=== PATIENT | female | born 1940 | race Caucasian/White ===

== ENCOUNTER → 2016-09-29 | Outpatient (CLI) | payer MEDICARE, BC ==
[~2016-09-29] MED LIST: ASPIRIN 81MG TA81 MG PO; AVPAK PRIMIDONE50 MG PO; CRESTOR10 MG PO; DICLOFENAC 50MG50 MG PO; EXFORGE 10 MG-31 TAB PO; HYDROCHLOROTHIA25 M1 PO; LEADER FIBER1 POW; LEVAQUIN250 MG PO; LOVAZA1 GM PO; PLAVIX 75MG TAB75 MG PO; VITAMIN C500 MG PO; VITAMIN D1000 IU PO
--- NOTE | 2016-09-29 13:43 | RADIOLOGY REPORT PS360 ---
HIP LT 2-3V W/PELVIS IF PERFOR HISTORY: LT HIP PAIN ORDERING PHYSICIAN: Ashok Lance MD PATIENT AGE: 76 years COMPARISON: None FINDINGS: Mild osteoarthritic changes are present involving the left hip. There is a faint lucency noted at the bases cervical region of the femoral neck probably related to a mock line from the posterior aspect of the acetabulum as opposed to a fracture. Please correlate clinically. No destructive process evident. Mild osteophyte formation along the femoral head. IMPRESSION: Mild osteoarthritic change of the left hip with probable mock line of the femoral neck
== END ==
LOC: RAD 12:17
DX: M25.552 Pain in left hip (principal)

== ENCOUNTER → 2017-04-19 | Outpatient (CLI) | payer MEDICARE, BC ==
[2017-04-19 14:52] LABS: BUN 15 mg/dL (7-18)
[2017-04-19 14:53] LABS: GFR (ESTIMATED) 81 ML/MIN (59-)
--- NOTE | 2017-04-20 15:04 | RADIOLOGY REPORT PS360 ---
CT Thoracic Spine W/WO Contras HISTORY: THORACIC PAINmost pronounced region T 11 level Patient Age: 77 years: Female Ordering Physician: Mike Veronica MD TECHNIQUE: Spiral CT scanning performed through the thoracic spine both pre and postcontrast as requested.. 100 cc Isovue 370 utilized thin sagittal and coronal along with axial reconstructions on CT workstation COMPARISON :CT 03/30/[address] abdomen February 2016 FINDINGS Primary finding on this case is the prominent densely calcified nodule/mass seen at the lower thoracic spinal canal. This is just posterior to the T11 level. Dense calcified. We appreciate no contrast enhancement by CT at or adjacent to this area. But this this in part due to its dense calcified character.. It measures up to 13 mm height x 11 mm transverse x 10 mm AP. This round calcified nodule Occupies & fills the LEFT aspect of the thecal sac and on cross-section occupies over 60% of the volume of the spinal canal. %. With this it compresses & displaces the lower thoracic cord to the right.. There is also some wispy lower density calcification just along the anterior left margin of of the dura overlying dense calcified area.. The latter appears to form a ssubtle tail superior and inferior to the mass on sagittal reconstruction views This did not enhance appreciably either ( although delayed images may have been helpful in this regard to enhance minute meningioma as an enhanced early or late). But nonetheless I tend to favor Favor a densely calcified meningioma particularly with what appears likely anterior dural base nodule......... On also note it is fairly stable since the CT abdomen February which addition supports its indolent nature Major Differential considerations might include densely calcified large extruded disc fragment which I believe less likely as this favor this is more likely dural based/ intradural extra medullary tumor. (which favors meningioma) Unlikely dense calcified Schwannoma to this degree briefly entertain but very as these are very rare. Calcified metastatic lesion unlikely given the stability Neurosurgical consult recommended. L1/2. Mild slightly calcified disc bulge most evident to the right. L2/3. Slight Calcified margin of bulging disc most evident to the right foramen The vertebral bodies superior to this appears satisfactory no additional lesions. Marginal osteophytes and mild degenerative disc changes throughout the T-spine. The previous anterior fusion at lower cervical spine involving at least C4-C5-C6.. There may be some scant anterior positioning & listhesis of C7 on T1, Just over 1.5 mm with scant mild posterior- hypertrophic ridging at C7/T1 There is also a small posterior central spurring posteriorly at midline T3/T4 level. Suggestion tiny area spurring or tiny calcified disc protrusion the right at T8/9 . IMPRESSION 1. Stable appearing density calcified nodule/mass at the left aspect of the spinal canal posterior to the T11 level.. Occupies over 60% of the spinal canal compressing and displaces the lower thoracic cord to the right. Favor densely calcified meningioma.. On close inspection suspect suggestion of likely dural based margin along its anterior left aspect, along some subtle wispy calcification of the dural margin overlying this area. Above and below the major mass. Other differential considerations discussed in text unlikely. No appreciable enhancement here with CT but this mainly reflect its diffusely dense calcified character. Neurosurgical consult recommended 2. Anterior marginal osteophyte and degenerative changes T-spine 3. With this only note Suggestion of very tiny calcified spur or possible tiny calcified disc just to the right of midline at T 8/9. Barely appreciable 4. Previous anterior discectomy and fusion C4-5-6 noted
== END ==
LOC: RAD 13:32
PROVIDERS: Family Medicine
DX: M54.6 Pain in thoracic spine (principal); R52 Pain, unspecified
CPT/HCPCS: Q9967

== ENCOUNTER 2017-05-11 10:40 | Emergency (ER) | payer MEDICARE, BC ==
[~2017-05-11] VITALS: Ht 162.6 cm; Wt 71.2 kg
--- NOTE | 2017-05-11 11:10 | Emergency Room Report ---
History of Present Illness Time Seen by 1101 Presenting Problem in Triage Pt arrived:Walked Presenting Problem:PT REPORTS PAIN IN L FOOT X2 DAYS. PT DENIES ANY KNOWN INJURY , STATES PAIN IS WORSE WITH AMBULATION. REPORTS PAIN FEELS "DEEP" IN FOOT. 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 N Clinical Suspician of Infection? N Mental Status: 1 - Regular (Normal Baseline) Sepsis Risk:Low Sepsis Risk Have you (or family members/close friends) recently traveled outside the [place]? N If Yes, where/when: Have you had exposure to infectious disease within the past month? N TB? Other? Specify: 77 yrs old wf with recent physical therapy for back pain and LEFT knee pain with improvement. 2 days ago she developed LEFT medial arch foot pain. It is worse with standing on it relieved by rest. She has not used her anti-inflammatories for the last 2 days. She denies having skin color changes ankle pain, heel pain, or calf pain. She has no numbness or tingling of the foot she has no abnormal sensation, she has no color changes. Source patient, RN notes reviewed, family (her ) Exam Limitations no limitations ALLERGIES Coded Allergies: No Known Allergies (01/04/16) Home Medications Reported Medications Primidone (Avpak Primidone) 150 MG PO QHS #90 TAB Primidone (Avpak Primidone) 50 MG PO DAILY AMLODIPINE/VALSARTAN (Exforge 10-320 MG Tablet) 1 TAB PO DAILY CHOLECALCIFEROL (VITAMIN D3) (Vitamin D3) 2,000 IUNITS PO DAILY Ascorbic Acid (Vitamin C) 500 MG PO DAILY DEXTRIN (Fiber) 1 POW NA DAILY Rosuvastatin Calcium (Crestor) 10 MG PO QHS HYDROCHLOROTHIAZIDE (Hydrochlorothiazide) 25 MG PO DAILY #30 History Medical History General CAD? No Angina: No OK: No Hypertension? Yes Hyperlipidemia? Yes CHF? No DVT? No PE? No COPD? Yes Asthma? No Anemia? No GERD? No Gastric ulcers? No GI Bleed? Yes Hernia? No Thyroid Problems? No Hypothyroidism? No CVA? No Seizures? No Diabetes? No Renal Insuffiency? No End Stage Renal Disease? No UTI? Yes Stones? No GB Disease: Yes Nephritic Syndrome? No Asplenia? No Hepatitis? No Sickle Cell Disease? No Arthritis? Yes Migraines? No Cataracts? Yes Glaucoma? No MRSA? No HIV? No TB? No Anxiety? Yes Depression? Yes Cancer? Yes Site: MELANOMA ON ARM More? 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 Respiratory no symptoms reported Cardiovascular no symptoms reported Gastrointestinal no symptoms reported Genitourinary no symptoms reported. Skin no symptoms reported Psychiatric/Neurological no symptoms reported Physical Exam Vital Signs Vital Signs Date Time Temp Pulse Resp B/P Pulse O2 O2 Flow FiO2 Ox Delivery Rate 05/11 1054 98.0 70 18 110/71 95 05/11 1044 98.0 70 18 /71 95 - WBC >12,000 or <4,000 or 10% bands? 2 or more SIRS Criteria Met? B/P:110/71 MAP:84 Creatinine >2.0? UA output<0.5ml/kg/hr for 2 hrs? Platelet count >100,000? Lactate >2.0mmol/1? INR >1.2 or PTT > than 60 sec? Evidence of Organ Dysfunction? Provider documented clinical suspician of infection? N Sepsis Criteria Count: 0 Sepsis Risk: Low Sepsis Risk General Appearance normal appearance, WD/WN Eye Exam - bilateral eye normal exam, bilateral eye PERRL, bilateral eye EOMI Ear, Nose, Throat hearing grossly normal, normal ENT inspection Neck normal inspection, non-tender, supple, full range of motion Respiratory Status Yes: trachea midline, chest symmetrical, non tender chest. No: respiratory distress. Lung Sounds bilateral: normal breath sounds, lungs clear. Cardiovascular normal exam, regular rate/rhythm, no peripheral edema, no gallop, no JVD, no murmur, no rub, normal peripheral pulses Peripheral Pulses Pulses normal Yes Gastrointestinal normal bowel sounds, normal exam, non tender, soft, no organomegaly Back normal inspection, no CVA tenderness, no vertebral tenderness Extremities the patient has medial arch muscle tenderness worse by palpation and foot eversion. there is no bony tenderness no heel tenderness tenderness. There is no skin color changes. Dorsalis pedis was strong, cap Refill is one second in the LEFT foot. 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 ED Critical Care Critical Care No at 1104
[2017-05-11 11:50] VITALS: BP 142/76
[2017-05-11] MEDS ORDERED: OMEGA-31000 M1 (12:00)
[2017-05-11] MEDS ORDERED: ADVIL100 MG (12:01)
--- NOTE | 2017-05-11 13:19 | RADIOLOGY REPORT PS360 ---
FOOT-LT-3 VIEWS HISTORY: PAIN WITH NO TRAUMA ORDERING PHYSICIAN: Vito Mcfarland MD PATIENT AGE: 77 years COMPARISON: None FINDINGS: Weightbearing views are performed Mild hallux valgus with first metatarsophalangeal angle of 28 degrees and hypertrophic changes noted at the distal first metatarsal with some soft tissue swelling also at that area consistent with bunion formation. There is some ossification of the Achilles tendon and along the plantar fascia at the calcaneal spur region. IMPRESSION: 1. Hallux valgus with bunion formation. 2. Nonspecific calcification of the plantar fascia and Achilles tendon
--- NOTE | 2017-05-11 13:20 | RADIOLOGY REPORT PS360 ---
FOOT-RT-3 VIEWS HISTORY: PAIN WITH NO TRAUMA ORDERING PHYSICIAN: Vito Mcfarland MD PATIENT AGE: 77 years COMPARISON: None FINDINGS: Weightbearing views are performed. There is severe hallux valgus with first metatarsophalangeal angle of 42 degrees with bunion formation at the distal first metatarsal. Mild flexion deformity of the second digit. No evidence of pes planus. No fracture or dislocation. IMPRESSION: Severe hallux valgus with bunion formation. Mild flexion deformity of the second digit
--- OUTSIDE RECORDS SUMMARY | 2017-05-12 10:45 | External Medical Summary Rpt | CCD ---
Author Author , TONY Organization TONY Address Unknown Phone [email or web address] Name Relationship Address Phone AKIKO, Next Of Kin [address], [phone] [place] [address] Purpose Continuity of Care Document - 08-21-2013 through 2016 Allergies, Adverse Reactions, Alerts Type Allergy to substance Adverse Reaction to Substance Substance Reaction Severity NO KNOWN ALLERGIES Unknown Unknown Medications Na ND Rx Da Fi Fi Am Da Di Ph RX Ph St me C No te ll ll ou ys ag ar # ys at rm s nt no ma ic us Or Da si cy ia de te s n re d SO 00 02 0 No DI 40 -0 UM 97 5- Lo 98 20 ng CH 30 14 er LO 3 RI Ac DE ti ve 0. 9% SO KATRINA TI ON Sa 63 02 0 No li 80 -0 ne 70 5- Lo 10 20 ng Fl 07 14 er us 5 h Ac 10 ti ML ve Sy ri ng e Po 00 02 0 No ta 24 -0 ss 50 5- Lo iu 05 20 ng m 80 14 er Ch 1 lo Ac ri ti de ve 20 ME Q Ta bl e MA 00 02 0 No PA 90 -0 P 41 5- Lo 32 98 20 ng 5 26 14 er MG 1 Ac TA ti BL ve ET LE 25 02 0 No VO 02 -0 FL 10 5- Lo OX 13 20 ng AC 28 14 er IN 3 Ac 75 ti 0 ve MG /1 50 ML -D 5W Vital Signs 08-21-2013 17:09 Name Value Interpretat Reference Comment ion Range Body 99.8 [degF] Temperature BP 69 mm[Hg] Diastolic BP Systolic 127 mm[Hg] Heart 75 /min Rate/Pulse O2% 94 % Respiratory 20 /min Rate 08-21-2013 15:46 Name Value Interpretat Reference Comment ion Range Body 99.8 [degF] Temperature 08-21-2013 14:57 Name Value Interpretat Reference Comment ion Range BP 68 mm[Hg] Diastolic BP Systolic 140 mm[Hg] Heart 79 /min Rate/Pulse O2% 94 % Respiratory 18 /min Rate Results Labs Lab Lab Date Result Refere Interp Status Commen Order Detail nces retati t Range on COMPREHENSIVE METABOLIC PANEL (08-21-2013 14:50) Glucose 139 74-106 complet 014 mg/dL ed Bld-mCn 14:50 c BUN 22 7-18 complet Bld-mCn 014 mg/dL ed c 14:50 Creat 1.2 0.6-1.0 complet SerPl-m 014 mg/dL ed Cnc 14:50 Creat 47 50-200 complet Cl 014 ML/MIN ed predict 14:50 ed SerPl C-G-vRa te GFR/BSA 44 59- complet .pred 014 ML/MIN ed SerPl 14:50 Schwart z-vRate Sodium 133 136-145 complet SerPl-s 014 mmoL/L ed Cnc 14:50 Potassi 3.0 3.5-5.1 complet um 014 mmoL/L ed SerPl-s 14:50 Cnc Chlorid 93 98-107 complet e 014 mmoL/L ed SerPl-s 14:50 Cnc CO2 29 21.0-32 complet SerPl-s 014 mmoL/L .0 ed Cnc 14:50 Calcium 08-21- 8.6 8.5-10. complet 014 mg/dL 1 ed SerPl-m 14:50 Cnc Prot 7.8 6.4-8.2 complet SerPl-m 014 gm/dL ed Cnc 14:50 Albumin 05-2 2.8 3.4-5.0 complet 014 gm/dL ed SerPl-m 14:50 Cnc Globuli 5.0 1.3-3.2 complet n 014 gm/dL ed Ser-mCn 14:50 c Albumin 0.6 UNK 1.1-1.8 complet /Glob 014 ed SerPl-m 14:50 Rto Bilirub 0.3 0.2-1.0 complet 014 mg/dL ed SerPl-m 14:50 Cnc AST 02-05-2 178 U/L 15-37 complet SerPl-c 014 ed Cnc 14:50 ALT 02-05-2 267 U/L 12-78 complet SerPl-c 014 ed Cnc 14:50 ALP 02-05-2 286 U/L 50-136 complet SerPl-c 014 ed Cnc 14:50 THYROID STIM HORMONE (08-21-2013 14:50) THYROID 02-05-2 0.64 0.358-3 complet STIM 014 uIU/ml .740 ed HORMONE 14:50 CBC with AUTO DIFF (08-21-2013 14:15) WBC # 02-05-2 14.0 4.8-10. complet Bld 014 K/MM3 8 ed Auto 14:15 RBC # 02-05-2 4.19 4.2-5.4 complet Bld 014 M/mm3 ed Auto 14:15 Hgb 02-05-2 13.3 12.2-16 complet Bld-mCn 014 g/dL .2 ed c 14:15 Hct Fr 08-21-2 39.0 % 37.0-47 complet Bld 014 .0 ed 14:15 MCV RBC 0205-2 93.1 fl 82.2-97 complet 014 .8 ed 14:15 MCH RBC 05-2 31.7 pg 27-31.2 complet Qn 014 ed Auto 14:15 MEAN 05-2 34.0 31.8-35 complet CORPUSC 014 g/dl .4 ed ULAR 14:15 HGB CONC RDW RBC 02-05-2 15.5 % 11.5-17 complet Auto 014 .5 ed 14:15 Platele 05-2 223 142-424 complet t Bld 014 K/mm3 ed Ql 14:15 Manual MEAN 05-2 8.3 fl 7.4-10. complet PLATELE 014 4 ed T 14:15 VOLUME Granulo -05-2 88.3 % 37.0-80 complet cytes 014 .0 ed Fr Bld 14:15 Auto LYMPH % 02-05-2 5.9 % 10-50.0 complet 014 ed 14:15 Monocyt 02-05-2 5.1 % 1.7-9.3 complet es Fr 014 ed Bld 14:15 Auto Eosinop 02-05-2 0.5 % 0.1-12. complet hil Fr 014 0 ed Bld 14:15 Auto Basophi 0.2 % 0.1-2.0 complet ls Fr 014 ed Bld 14:15 Auto Granulo 12.4 1.8-7.8 complet cytes # 014 K/mm3 ed Bld 14:15 Auto Lymphoc 0.8 0.7-4.5 complet ytes Fr 014 K/mm3 ed Bld 14:15 Auto Monocyt 0.7 0.1-1.0 complet es # 014 K/mm3 ed Bld 14:15 Auto Eosinop 0.1 0.0-0.4 complet hil # 014 K/mm3 ed Bld 14:15 Auto Basophi 2 0.0 0-0.2 complet ls # 014 K/MM3 ed Bld 14:15 Auto Encounters Encounter Start End Date Code Location Performer Type Date Emergency CHALO FONSECA DO (ER) 4 14:22 4 17:20 [facility]
--- OUTSIDE RECORDS SUMMARY | 2017-05-12 10:45 | External Medical Summary Rpt | CCD ---
Author Author , TONY Organization TON[employer] Address Unknown Phone Support Name Relationship Address Phone AKIKO, Next Of Kin [address], [phone] [place] [address] Purpose Continuity of Care Document - 08-21-2013 [...] FONSECA DO (ER) 4 14:22 4 17:20 [facility]
--- OUTSIDE RECORDS SUMMARY | 2017-05-12 10:45 | External Medical Summary Rpt ---
Author Author [facility] Organization [facility] Address Unknown Phone Unavailable Care Team Providers Care Extractor Filler Name Role Phone George FLORES PCP [phone] Encounter [facility] [id number] Date(s): 04/21/16 - 04/22/16 [facility] [address] [place] [address]- Discharge Disposition: OP Self Care or Home Attending Physician: GERTRUDE MAGANA MD-CAR Admitting Physician: GERTRUDE MAGANA MD-CAR Referring Physician: GERTRUDE MAGANA MD-CAR Reason for Visit SICK SINUS SYNDROME Vital Signs Most recent 1 2 3 to oldest [Reference Range]: Temperature Oral (04/22/16 Oral Oral Source 12:00 PM) (04/22/16 7:45 AM) (04/22/16 4:06 AM) Temperature Fahrenheit Fahrenheit Fahrenheit Mode (04/22/16 12:00 (04/22/16 7:45 AM) (04/22/16 4:06 AM) PM) Temperature, 97.5 Deg F 97.6 Deg F 98.4 Deg F Fahrenheit (04/22/16 12:00 (04/22/16 7:45 AM) (04/22/16 4:06 AM) [96.8-99.7 PM) Deg F] Clinical 36.4 Deg C 36.4 Deg C 36.9 Deg C Temperature, (04/22/16 12:00 (04/22/16 7:45 AM) (04/22/16 4:06 AM) C PM) Peripheral 40 bpm Pulse Rate *LOW*(04/21/16 [60-100 bpm] 10:29 AM) Heart Rate 72 bpm (04/22/16 70 bpm 70 bpm Monitored 12:00 PM) (04/22/16 7:45 AM) (04/22/16 4:06 AM) [60-100 bpm] Respiratory 18 Breaths/Min Rate [14-20 (04/22/16 7:45 AM) Breaths/Min] Blood 152/101 mmHg 150/96 mmHg 141/88 mmHg Pressure *HI*(04/22/16 *HI* *HI* [90-140/60-9 12:00 PM) (04/22/16 7:45 AM) (04/22/16 4:06 AM) 0 mmHg] Mean 116 (04/22/16 111 106 Arterial 12:00 PM) (04/22/16 7:45 AM) (04/22/16 4:06 AM) Pressure (MAP)-BMDI Blood 182/102 mmHg 188/90 mmHg Pressure *HI* *HI* Invasive (04/21/16 3:59 PM) (04/21/16 3:00 PM) [90-140/60-9 0 mmHg] Oxygen 96 % (04/22/16 94 % 91 % Saturation 12:00 PM) (04/22/16 7:45 AM) *LOW* [94-100 %] (04/22/16 4:06 AM) Oxygen Room air Room air Therapy Mode (04/21/16 8:00 PM) (04/21/16 3:59 PM) Problem List Condition Effective Status Health Informant Dates Status Allergic Active rhinitis(Con firmed) Arthritis(Co Active nfirmed) Back Active pain(Confirm ed) Bronchitis(C Active onfirmed) Bursitis(Con Active firmed) Cataract(Con Active firmed) COPD Active patient (chronic obstructive pulmonary disease)(Con firmed) Coronary Active artery disease(Conf irmed) Carotid Active patient artery disease(Conf irmed) Syncope(Conf Active patient irmed) GI Active patient bleed(Confir med) High blood Active pressure(Con firmed) Hyperlipidem Active ia(Confirmed ) Osteopenia(C Active patient onfirmed) Sick sinus Active patient syndrome(Con firmed) tremors(Conf Active irmed) Allergies, Adverse Reactions, Alerts No Known Allergies Medications acetaminophen-HYDROcodone (acetaminophen-HYDROcodone 325 mg-5 mg oral tablet)1 Tab, Oral, Every 4 Hours, As Needed, Pain (Mild 1-3), Refills: 0Ordering provider: Paulette Huffman APRN amLODIPine-valsartan (Exforge 10 mg-160 mg oral tablet)1 Tab, Oral, Every Day, Refills: 5Ordering provider: Paulette Huffman APRN ascorbic acid (Vitamin C) 500 mg, Oral, Every Day, Refills: 0 omega-3 polyunsaturated fatty acids (Lovaza) 2 Cap, Oral, Every Day, Refills: 0 primidone 50 mg, Oral, Every Day, Refills: 0 Results GENERAL CHEMISTRY Most recent 1 to oldest [Reference Range]: Sodium Level 141 mmol/L [136-146 (04/21/16 10:09 AM) mmol/L] Potassium 3.7 mmol/L Level (04/21/16 10:09 AM) [3.5-5.1 mmol/L] Chloride 105 mmol/L Level (04/21/16 10:09 AM) [102-112 mmol/L] Carbon 30 mmol/L Dioxide (04/21/16 10:09 AM) Level [21-32 mmol/L] Anion Gap 10 [9-20] (04/21/16 10:09 AM) Glucose 101 mg/dL Level (04/21/16 10:09 AM) [74-106 mg/dL] Blood Urea 16 mg/dL Nitrogen (04/21/16 10:09 AM) [7-22 mg/dL] Creatinine 0.80 mg/dL Level (04/21/16 10:09 AM) [0.55-1.02 mg/dL] eGFR 85 mL/min/1.73m2 [>=60 (04/21/16 10:09 AM) mL/min/1.73m 2] eGFR 70 mL/min/1.73m2 NonAfrican (04/21/16 10:09 AM) [>=60 mL/min/1.73m 2] Bun/Creatini 20.0 ne (04/21/16 10:09 AM) [8.0-20.0] Calcium 8.5 mg/dL Level (04/21/16 10:09 AM) [8.5-10.1 mg/dL] Protein 7.2 Gram/dL Total (04/21/16 10:09 AM) [6.4-8.2 Gram/dL] Albumin 4.0 Gram/dL Level (04/21/16 10:09 AM) [3.4-5.0 Gram/dL] Globulin 3.2 Gram/dL [1.5-4.5 (04/21/16 10:09 AM) Gram/dL] A/G Ratio 1.2 [1.1-2.5] (04/21/16 10:09 AM) Bilirubin 0.3 mg/dL Total (04/21/16 10:09 AM) [0.2-1.0 mg/dL] Alk Phos 115 Units/Liter [27-136 (04/21/16 10:09 AM) Units/Liter] AST [5-37 18 Units/Liter Units/Liter] (04/21/16 10:09 AM) ALT [12-78 29 Units/Liter Units/Liter] (04/21/16 10:09 AM) Magnesium 2.0 mg/dL Level (04/21/16 10:09 AM) [1.5-2.4 mg/dL] CARDIAC SPECIFIC MARKERS Most recent 1 to oldest [Reference Range]: ProBNP 171 pg/mL [0-450 (04/21/16 10:09 AM) pg/mL] HEMATOLOGY Most recent 1 to oldest [Reference Range]: WBC 7.8 K/uL [4.0-10.0 (04/21/16 10:09 AM) K/uL] RBC 4.06 Million/uL [3.93-5.22 (04/21/16 10:09 AM) Million/uL] Hgb 12.8 g/dL [11.2-15.7 (04/21/16 10:09 AM) g/dL] Hct 38.1 % [34.1-44.9 (04/21/16 10:09 AM) %] MCV 93.8 fL [79.0-94.8 (04/21/16 10:09 AM) fL] MCH 31.5 pg [25.6-32.2 (04/21/16 10:09 AM) pg] MCHC 33.6 Gram/dL [32.2-36.5 (04/21/16 10:09 AM) Gram/dL] Platelet 202 K/uL Count (04/21/16 10:09 AM) [163-369 K/uL] MPV 9.4 fL [9.4-12.4 (04/21/16 10:09 AM) fL] RDW 13.2 % [11.6-14.4 (04/21/16 10:09 AM) %] Slide Review No (04/21/16 10:09 AM) ENDOCRINOLOGY Most recent 1 to oldest [Reference Range]: TSH 0.535 mcInt Units/mL [0.358-3.740 (04/21/16 10:09 AM) mcInt Units/mL] Immunizations No data available for this section Procedures Procedure Date Related Body Site Diagnosis anterior cervical disc fusion carpal tunnel and right trigger finger release parathyroidectomy right arm melanoma excision right retinal emboli/stroke Social History Social History Response Type Smoking Status Former smoker; Smoking Frequency Within Last 30 Days None; Tobacco Use Within Last Twelve Months No; Years of Tobacco Use 55; Packs/Tins Daily 2; Used Tobacco, but Quit Yes; Second Hand Smoke Exposure No; Smokeless Tobacco Use in Last 30 Days No; Smokeless Tobacco Use History None Assessment and Plan Extracted from: Title: EP Progress Author: Nathanael, Date: 04/22/16 Note- Christin Valadez APRN SubjectiveFollow up: Sick sinus syndrome with documentation of sinus rates frequently down in the40s. In fact today in the procedure lab heart rate was 40 beats per minutedo indicate sinus rhythm.-- post Dual ch PPM [facility] 04/21/16 - nl fx. Chief Complaint: none.PACEMAKER DATA:04/21/16Company is [employer]. The generator implanted is [id number]. The rightatrial lead is [employer] [id number], pacing threshold 1.25 V, 0.5msec, lead impedance 700 ohms. P-wave is 2.4 mV. The RV lead is [facility] [id number], pacing threshold 0.3 V at 0.5 msec, lead impedance is 687ohms, R-wave 12 mV.Final programming is DDDR, lower rate 70, upper rate 120.CONCLUSION:Successful dual-chamber pacemaker implantation. No observed complications. [id number], pacing threshold 0.3 V at 0.5 msec, lead impedance is 687 ohms, R-wave 12 mV. Final programming is DDDR, lower rate 70, upper rate 120. CONCLUSION: Successful dual-chamber pacemaker implantation. No observed complications. Health StatusAllergies:Allergic Reactions (All)No Known AllergiesCanceled/Inactive Reactions (All)No Known Allergies,Allergies (1) ActiveReactionNo Known AllergiesNone DocumentedCurrent medications: (Selected)Inpatient MedicationsOrderedCrestor: 5 mg, Oral, At BedtimeDiovan: 160 mg, Oral, DailyFish Oil: 5,000 mg, Oral, BIDNorvasc: 5 mg, Oral, DailyTylenol: 1,000 mg, Oral, Daily, PRN: PainVitamin C: 500 mg, Oral, DailyVitamin D3: 1,000 Units, Oral, At Bedtimeacetaminophen-HYDROcodone 325 mg-5 mg oral tablet: 1 Tab, Oral, Q4H, PRN: Pain (Mild 1-3)hydrochlorothiazide: 25 mg, Oral, Dailyprimidone: 150 mg, Oral, At Bedtimeprimidone: 50 mg, Oral, DailytraMADol: 100 mg, Oral, QID, PRN: Pain (Severe 7-10)traMADol: 50 mg, Oral, QID, PRN: Pain (Moderate 4-6)Documented MedicationsDocumentedBenefiber: 2tsp, Oral, DailyCrestor: 5 mg, Oral, At BedtimeExforge 5 mg-160 mg oral tablet: 1 Tab, Oral, Daily, 0 Refill(s)Lovaza: 2 Cap, Oral, Daily, 0 Refill(s)Tylenol: 1,000 mg, Oral, Daily, PRN: PainVitamin C: 500 mg, Oral, Daily, 0 Refill(s)Vitamin D3: 1,000 Units, Oral, At Bedtimehydrochlorothiazide: 25 mg, Oral, Daily, 0 Refill(s)primidone: 150 mg, Oral, At Bedtime, 0 Refill(s)primidone: 50 mg, Oral, Daily, 0 Refill(s),Home Medications (10) ActiveBenefiber 2tsp, Oral, DailyCrestor 5 mg, Oral, At BedtimeExforge 5 mg-160 mg oral tablet 1 Tab, Oral, Dailyhydrochlorothiazide 25 mg, Oral, DailyLovaza 2 Cap, Oral, Dailyprimidone 150 mg, Oral, At Bedtimeprimidone 50 mg, Oral, DailyTylenol 1,000 mg, PRN, Oral, DailyVitamin C 500 mg, Oral, DailyVitamin D3 1,000 Units, Oral, At Bedtime,Medications (13) ActiveScheduled: (9)amLODIPine 5 mg tab 5 mg 1 Tab, Oral, Dailyascorbic acid 500 mg tab 500 mg 1 Tab, Oral, Dailycholecalciferol 1,000 int unit tab 1,000 Units 1 Tab, Oral, At Bedtimehydrochlorothiazide 25 mg tab 25 mg 1 Tab, Oral, Dailyomega-3 fish oil 1,000 mg cap 5,000 mg 5 Cap, Oral, BIDprimidone 50 mg tab 50 mg 1 Tab, Oral, Dailyprimidone 50 mg tab 150 mg 3 Tab, Oral, At Bedtimerosuvastatin 10 mg tab 5 mg 0.5 Tab, Oral, At Bedtimevalsartan 160 mg tab 160 mg 1 Tab, Oral, DailyContinuous: (0)PRN: (4)acetaminophen 500 mg tab 1,000 mg 2 Tab, Oral, Dailyacetaminophen/HYDROcodone 325/5 mg tab 1 Tab, Oral, X1SwbkOGOtm 50 mg tab 50 mg 1 Tab, Oral, QIDtraMADol 50 mg tab 100 mg 2 Tab, Oral, QIDProblem list:All ProblemsAllergic rhinitis / SNOMED CT 538010333 / ConfirmedArthritis / SNOMED CT 8239964 / ConfirmedBack pain / PNED [id number] / ConfirmedBronchitis / SNOMED CT 45281611 / ConfirmedBursitis / SNOMED CT 095293549 / ConfirmedCataract / Patient Care / ConfirmedCOPD (chronic obstructive pulmonary disease) / SNOMED CT 22969846 / ConfirmedCoronary artery disease / SNOMED CT 5364035334 / ConfirmedCarotid artery disease / SNOMED CT 2247511007 / ConfirmedSyncope / SNOMED CT 9067366765 / ConfirmedGI bleed / SNOMED CT 215575321 / ConfirmedHigh blood pressure / SNOMED CT 23984665 / ConfirmedHyperlipidemia / SNOMED CT 48754720 / ConfirmedOsteopenia / SNOMED CT 575613195 / ConfirmedSick sinus syndrome / SNOMED CT 19058912 / Confirmedtremors / ConfirmedCanceled: Osteoporosis / SNOMED CT 200751941,Active Problems (16)Allergic rhinitis Arthritis Back pain Bronchitis Bursitis Carotid artery disease Cataract COPD (chronic obstructive pulmonary disease) Coronary artery disease GI bleed High blood pressure Hyperlipidemia Osteopenia Sick sinus syndrome Syncope tremors cholecalciferol 1,000 int unit tab 1,000 Units 1 Tab, Oral, At Bedtime hydrochlorothiazide 25 mg tab 25 mg 1 Tab, Oral, Daily omega-3 fish oil 1,000 mg cap 5,000 mg 5 Cap, Oral, BID primidone 50 mg tab 50 mg 1 Tab, Oral, Daily primidone 50 mg tab 150 mg 3 Tab, Oral, At Bedtime rosuvastatin 10 mg tab 5 mg 0.5 Tab, Oral, At Bedtime valsartan 160 mg tab 160 mg 1 Tab, Oral, Daily Continuous: (0) PRN: (4) acetaminophen 500 mg tab 1,000 mg 2 Tab, Oral, Daily acetaminophen/HYDROcodone 325/5 mg tab 1 Tab, Oral, Q4H traMADol 50 mg tab 50 mg 1 Tab, Oral, QID traMADol 50 mg tab 100 mg 2 Tab, Oral, QID Problem list: All Problems Allergic rhinitis / SNOMED CT 985942259 / Confirmed Arthritis / SNOMED CT 3446123 / Confirmed Back pain / PNED [id number] / Confirmed Bronchitis / SNOMED CT 58081145 / Confirmed Bursitis / SNOMED CT 744602140 / Confirmed Cataract / Patient Care / Confirmed COPD (chronic obstructive pulmonary disease) / SNOMED CT 39203049 / Confirmed Coronary artery disease / SNOMED CT 6923846069 / Confirmed Carotid artery disease / SNOMED CT 8429908947 / Confirmed Syncope / SNOMED CT 4781764560 / Confirmed GI bleed / SNOMED CT 358589474 / Confirmed High blood pressure / SNOMED CT 87678423 / Confirmed Hyperlipidemia / SNOMED CT 04811578 / Confirmed Osteopenia / SNOMED CT 368709594 / Confirmed Sick sinus syndrome / SNOMED CT 87019958 / Confirmed tremors / Confirmed Canceled: Osteoporosis / SNOMED CT 460323117, Active Problems (16) Allergic rhinitis Arthritis Back pain Bronchitis Bursitis Carotid artery disease Cataract COPD (chronic obstructive pulmonary disease) Coronary artery disease GI bleed High blood pressure Hyperlipidemia Osteopenia Sick sinus syndrome Syncope tremors ObjectiveVitals Signs (last 24 hrs) Last Charted Minimum MaximumTemp 97.6 (APR 22 07:45)97.6 (APR 22 07:45)98.2 (APR 21 19:42)Mon HR 70 (APR 22 07:45)69 (APR 21 15:59)116 (APR 21 18:45)Periph HR 40 (APR 21 10:29)40 (APR 21 10:29)40 (APR 21 10:29)Resp Rate 18 (APR 22:45)18 (APR 22 07:45)18 (APR 22 07:45)SBP H 150 (APR 22:45)H 141 (APR 22 04:06)H 184 (APR 21 17:15)DBP H 96 (APR 22:45)78 (APR 21 10:29)H 119 (APR 21 20:00)MAP 111 (APR 22:45)106 (APR 22 04:06)147 (APR 21 17:15)SpO2 94 (APR 22:45)L 91 (APR 21 19:42)100 (APR 21 19:15)VS/MeasurementsVital Signs/Vital [id number]/7/2016 7:45 EDT Temperature Source Oral Temperature Mode Fahrenheit Temperature, Fahrenheit 97.6 Deg F Clinical Temperature, C 36.4 Deg C Heart Rate Monitored 70 bpm Respiratory Rate 18 Breaths/Min Systolic Blood Pressure 150 mmHg HI Diastolic Blood Pressure 96 mmHg HI Mean Arterial Pressure (MAP)-BMDI 111 Oxygen Saturation 94 %04/22/2016 4:06 EDT Temperature Source Oral,Vitals Signs (last 24 hrs) Last Charted Minimum MaximumTemp 97.6 (APR 22:45)97.6 (APR 22:45)98.2 (APR 21 19:42)Mon HR 70 (APR 22 07:45)69 (APR 21 15:59)116 (APR 21 18:45)Periph HR 40 (APR 21 10:29)40 (APR 21 10:29)40 (APR 21 10:29)Resp Rate 18 (APR 22 07:45)18 (APR 22 07:45)18 (APR 22 07:45)SBP H 150 (APR 22 07:45)H 141 (APR 22 04:06)H 184 (APR 21 17:15)DBP H 96 (APR 22 07:45)78 (APR 21 10:29)H 119 (APR 21 20:00)MAP 111 (APR 22 07:45)106 (APR 22 04:06)147 (APR 21 17:15)SpO2 94 (APR 22 07:45)L 91 (APR 21 19:42)100 (APR 21 19:15)TELE: AP, VS, VR 69. 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 no mode switch. decreased o 0.2 MV, V autocapture on. Radiology Results (Last 48 hours)[id number] -- 04/21/2016 09:27CR Chest 1 Vw Portable (04/21/2016 16:40) Result: AP PORTABLE CHESTCLINICAL HISTORY: Status post pacemaker.COMPARISON: None.FINDINGS: An AP portable view of the chest was obtained. An intravenouspacemaker is appropriately positioned. There is no pneumothorax. Thelungs are clear. The heart and vasculature are otherwise unremarkable.There is no pleural disease, adenopathy or significant osseousabnormality.IMPRESSION: No pneumothorax after pacemaker insertion.Images reviewed, interpreted, and dictated by Dr. Benavides.Transcribed by Silvestre Juarez.I have personally viewed, interpreted and dictated the examination. Ihave read and agree with the above final transcribed report.General: Alert and oriented, No acute distress.Eye: Pupils are equal, round and reactive to light, Extraocular movements are intact, Normal conjunctiva.HENT: Normocephalic.Neck: Supple, Non-tender, No carotid bruit, No jugular venous distention.Respiratory: Lungs are clear to auscultation.Cardiovascular: Normal rate, Regular rhythm, Good pulses equal in all extremities, Normal peripheral perfusion, No edema. Bruit: None. Support: Pacemaker ( Permanent ).Gastrointestinal: Soft, Non-tender, Non-distended, Normal bowel sounds.Musculoskeletal: Normal range of motion.Integumentary: Warm, Dry, [place].Neurologic: Alert, Oriented, No focal deficits.Psychiatric: Cooperative, Appropriate mood & affect.Rt pectoral site: durabond intact Respiratory: Lungs are clear to auscultation. Cardiovascular: Normal rate, Regular rhythm, Good pulses equal in all extremities, Normal peripheral perfusion, No edema. Bruit: None. Support: Pacemaker ( Permanent ). Gastrointestinal: Soft, Non-tender, Non-distended, Normal bowel sounds. Musculoskeletal: Normal range of motion. Integumentary: Warm, Dry, [place]. Neurologic: Alert, Oriented, No focal deficits. Psychiatric: Cooperative, Appropriate mood & affect. Rt pectoral site: durabond intact Results Review APR 21 10:09 141 | 105 | 16 / 101 3.7 | 30 | 0.80 \\Labs (Last four charted values)WBC 7.8(APR 21)HB 12.8(APR 21)HCT 38.1(APR 21)Plt 202(APR 21)Na 141(APR 21)K 3.7(APR 21)Cl 105(APR 21)CO2 30(APR 21)BUN 16(APR 21)Cr 0.80(APR 21)Glu R 101(APR 21)Ca 8.5(APR 21)AST 18(APR 21)ALT 29(APR 21)ALK P 115(APR 21)T Bili 0.3(APR 21)PTN 7.2(APR 21)ALB 4.0(APR 21)PROBNP 171(APR 21)CMP Results (Current Encounter/Past 24 Hours)Creatinine Level 0.80 mg/dL 04/21/2016 10:54Bun/Creatinine 20.0 04/21/2016 10:54eGFR NonAfrican 70 mL/min/1.73m2 04/21/2016 10:54eGFR 85 mL/min/1.73m2 04/21/2016 10:54Globulin 3.2 Gram/dL 04/21/2016 10:54Protein Total 7.2 Gram/dL 04/21/2016 10:54A/G Ratio 1.2 04/21/2016 10:54Sodium Level 141 mmol/L 04/21/2016 10:54Potassium Level 3.7 mmol/L 04/21/2016 10:54Chloride Level 105 mmol/L 04/21/2016 10:54Carbon Dioxide Level 30 mmol/L 04/21/2016 10:54Anion Gap 10 04/21/2016 10:54Alk Phos 115 Units/Liter 04/21/2016 10:54ALT 29 Units/Liter 04/21/2016 10:54AST 18 Units/Liter 04/21/2016 10:54Blood Urea Nitrogen 16 mg/dL 04/21/2016 10:54Glucose Level 101 mg/dL 04/21/2016 10:54Albumin Level 4.0 Gram/dL 04/21/2016 10:54Bilirubin Total 0.3 mg/dL 04/21/2016 10:54Calcium Level 8.5 mg/dL 04/21/2016 10:54Magnesium Level 2.0 mg/dL 04/21/2016 10:54 ALK P 115(APR 21) T Bili 0.3(APR 21) PTN 7.2(APR 21) ALB 4.0(APR 21) PROBNP 171(APR 21) CMP Results (Current Encounter/Past 24 Hours)Creatinine Level 0.80 mg/dL 2015 10:54 Bun/Creatinine 20.0 04/21/2016 10:54 eGFR NonAfrican 70 mL/min/1.73m2 04/21/2016 10:54 eGFR 85 mL/min/1.73m2 04/21/2016 10:54 Globulin 3.2 Gram/dL 04/21/2016 10:54 Protein Total 7.2 Gram/dL 04/21/2016 10:54 A/G Ratio 1.2 04/21/2016 10:54 Sodium Level 141 mmol/L 04/21/2016 10:54 Potassium Level 3.7 mmol/L 04/21/2016 10:54 Chloride Level 105 mmol/L 04/21/2016 10:54 Carbon Dioxide Level 30 mmol/L 04/21/2016 10:54 Anion Gap 10 04/21/2016 10:54 Alk Phos 115 Units/Liter 04/21/2016 10:54 ALT 29 Units/Liter 04/21/2016 10:54 AST 18 Units/Liter 04/21/2016 10:54 Blood Urea Nitrogen 16 mg/dL 04/21/2016 10:54 Glucose Level 101 mg/dL 04/21/2016 10:54 Albumin Level 4.0 Gram/dL 04/21/2016 10:54 Bilirubin Total 0.3 mg/dL 04/21/2016 10:54 Calcium Level 8.5 mg/dL 04/21/2016 10:54 Magnesium Level 2.0 mg/dL 04/21/2016 10:54 Impression and Plan 1. SSS, SB, V R40, pos tdual ch [facility] PPM 04/21/16--nl fx, no pneumothorax2. HTN -poor control3. CAdPlan:1. Home today2.Fup EP 1 month.3. Increase Exforge 10/160 daily for better BP control 2. HTN -poor control 3. CAd Plan: 1. Home today 2.Fup EP 1 month. 3. Increase Exforge 10/160 daily for better BP control Hospital Discharge Instructions Patient EducationFat and Cholesterol Restricted Diet, Nkdb-wv-Vdet Heart-Healthy Eating Plan, Jlru-bi-Pqzr Pacemaker Implantation, Care After GERTRUDE MAGANA POST-OP INSTRUCTIONS - DEVICE HOME CARE (Custom)"
--- OUTSIDE RECORDS SUMMARY | 2017-05-12 10:45 | External Medical Summary Rpt ---
Author Author [facility] Organization [facility] Address Unknown Phone Unavailable Care Team Providers Care Plasterer Tender Name Role Phone George FLORES PCP [phone] [facility] [id number] Date(s): 04/21/16 - 04/22/16 [facility] [address] [place] [address]- Discharge Disposition: OP Self Care or Home [...] is [facility]. The generator implanted is [id number]. The rightatrial lead is [employer] [facility] [id number], pacing threshold 1.25 V, 0.5msec, lead impedance 700 ohms. P-wave is 2.4 mV. The RV lead is [facility] [id number], pacing threshold 0.3 V at 0.5 msec, lead impedance is 687ohms, R-wave 12 mV.Final programming is DDDR, lower rate 70, upper rate 120.CONCLUSION:Successful dual-chamber pacemaker implantation. No observed complications. [id number], pacing threshold 0.3 V at 0.5 msec, [...] Dailyacetaminophen/HYDROcodone 325/5 mg tab 1 Tab, Oral, [id number] 50 mg tab 50 mg 1 Tab, Oral, QIDtraMADol 50 mg tab 100 mg 2 Tab, Oral, QIDProblem list:All ProblemsAllergic rhinitis / SNOMED CT 582283605 / ConfirmedArthritis / SNOMED CT 5633527 / ConfirmedBack pain / PNED [id number] / ConfirmedBronchitis / SNOMED CT 48042523 / ConfirmedBursitis / SNOMED CT 090626482 / ConfirmedCataract / Patient Care / ConfirmedCOPD (chronic obstructive pulmonary disease) / SNOMED CT 69480399 / ConfirmedCoronary artery disease / SNOMED CT 0284692759 / ConfirmedCarotid artery disease / SNOMED CT 8558201609 / ConfirmedSyncope / SNOMED CT 7753178769 / ConfirmedGI bleed / SNOMED CT 440995079 / ConfirmedHigh blood pressure / SNOMED CT 27592682 / ConfirmedHyperlipidemia / SNOMED CT 63487737 / ConfirmedOsteopenia / SNOMED CT 356977906 / ConfirmedSick sinus syndrome / SNOMED CT 86696721 / Confirmedtremors / ConfirmedCanceled: Osteoporosis / SNOMED CT 354674260,Active Problems (16)Allergic rhinitis Arthritis Back pain Bronchitis [...] All Problems Allergic rhinitis / SNOMED CT 897745794 / Confirmed Arthritis / SNOMED CT 5636815 / Confirmed Back pain / PNED [id number] / Confirmed Bronchitis / SNOMED CT 05216193 / Confirmed Bursitis / SNOMED CT 840974698 / Confirmed Cataract / Patient Care / Confirmed COPD (chronic obstructive pulmonary disease) / SNOMED CT 05783333 / Confirmed Coronary artery disease / SNOMED CT 9228246627 / Confirmed Carotid artery disease / SNOMED CT 0036807933 / Confirmed Syncope / SNOMED CT 8490925804 / Confirmed GI bleed / SNOMED CT 147984681 / Confirmed High blood pressure / SNOMED CT 54470835 / Confirmed Hyperlipidemia / SNOMED CT 23333843 / Confirmed Osteopenia / SNOMED CT 108537316 / Confirmed Sick sinus syndrome / SNOMED CT 83197057 / Confirmed tremors / Confirmed Canceled: Osteoporosis / SNOMED CT 241438586, Active Problems (16) Allergic rhinitis Arthritis Back [...] (APR 21 19:42)100 (APR 21 19:15)VS/MeasurementsVital Signs/Vital Heeetbon28/7/2016 7:45 EDT Temperature Source Oral Temperature Mode [...] reprogramming: 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 decreased o 0.2 MV, V autocapture on. Radiology Results (Last 48 hours)[id number] -- 04/21/2016 09:27CR Chest 1 Vw Portable [...] sounds.Musculoskeletal: Normal range of motion.Integumentary: Warm, Dry, [place].Neurologic: Alert, Oriented, No focal deficits.Psychiatric: Cooperative, Appropriate mood & affect.Rt pectoral site: durabond intact Respiratory: Lungs are clear to auscultation. Cardiovascular: Normal rate, Regular rhythm, Good pulses equal in all extremities, Normal peripheral perfusion, No edema. Bruit: None. Support: Pacemaker ( Permanent ). Gastrointestinal: Soft, Non-tender, Non-distended, Normal bowel sounds. Musculoskeletal: Normal range of motion. Integumentary: Warm, Dry, [place]. Neurologic: Alert, Oriented, No focal deficits. Psychiatric: [...] Instructions Patient EducationFat and Cholesterol Restricted Diet, Tdbp-cz-Einj Heart-Healthy Eating Plan, Vlct-sf-Mwau Pacemaker Implantation, Care After GERTRUDE MAGANA POST-OP INSTRUCTIONS - DEVICE HOME CARE (Custom)"
--- OUTSIDE RECORDS SUMMARY | 2017-05-12 10:46 | External Medical Summary Rpt ---
Author Author [email or web address], [email or web address] Organization [employer] Address Unknown Phone Unavailable Results Urea nitrogen [Mass/volume] in Serum or Plasma Observa Value Referen Units Interpr Notes Date tion ce etation Range Urea 7 - 18 mg/dL Normal No Oct 4 nitrogen informati 2017 2:25 [Mass/vol on in PM ume] in source Serum or data Plasma CREATININE Observa Value Referen Units Interpr Notes Date tion ce etation Range Creatinin 0.55 - mg/dL Normal No Oct 4 e 1.02 informati 2017 2:25 [Mass/vol on in PM ume] in source Serum or data Plasma Estimated 59- ML/MIN No REFERENCE Oct 4 informati RANGE: 2017 2:25 glomerula on in >60 PM r source ML/MIN/1. filtratio data 73 SQUARE n rate METERSIf (GF this patient is -A merican, then multiply theresult by 1.210.
--- OUTSIDE RECORDS SUMMARY | 2017-05-12 10:46 | External Medical Summary Rpt | CCD ---
Demographics Preferred Language Turkish Marital Status Unknown Mandaen Affiliation Unknown Race Unknown Ethnic Group Unknown Author Author , TONY JIMENEZ Address Unknown Phone Immunization Unable to retrieve immunization data due to connection failure with Immunization Registry. Please try again later.
--- OUTSIDE RECORDS SUMMARY | 2017-05-12 10:46 | External Medical Summary Rpt | CCD ---
Demographics Preferred Language Bengali Marital Status Unknown Episcopal Affiliation Unknown Race Unknown Ethnic Group Unknown Author Author , TONY JIMENEZ Address Unknown Phone Immunization Unable to retrieve immunization data due to connection failure with Immunization Registry. Please try again later.
--- OUTSIDE RECORDS SUMMARY | 2017-05-12 10:46 | External Medical Summary Rpt | CCD ---
Author Author [employer] [facility] [employer] Address Unknown Phone Unavailable Purpose Continuity of Care Document - through 2016
--- OUTSIDE RECORDS SUMMARY | 2017-05-12 10:46 | External Medical Summary Rpt ---
Author Author [employer] [employer] Address Unknown Phone Unavailable [...]
== END 2017-05-11 11:50 | disposition home or self-care (01) ==
LOC: ER 10:40
DX: M76.62 Achilles tendinitis, left leg (principal); I10 Essential (primary) hypertension; J44.9 Chronic obstructive pulmonary disease, unspecified; Z87.891 Personal history of nicotine dependence

== ENCOUNTER → 2017-06-12 | Outpatient (CLI) | payer MEDICARE, BC ==
[~2017-06-12] MED LIST changes: +ADVIL100 MG; -CRESTOR10 MG PO; +CRESTOR5 MG PO; +GABAPENTIN 100100 MG; +OMEGA-31000 M1
--- NOTE | 2017-06-13 06:35 | RADIOLOGY REPORT PS360 ---
EXAM: CT LUNG LOW DOSE WO CONTRAST COMPARISON: None HISTORY: 77-year-old female with history of tobacco abuse asymptomatic ORDERING PHYSICIAN: Mike Veronica MD PATIENT AGE: 77 years TECHNIQUE: The exam was performed on a GE Light Speed [address] scanner using 2.95 mGy CTDI. A low dose helical CT CHEST was performed on a multi-detector scanner The LDCT was performed in a facility that meets the criteria for the screening program. Data regarding this exam was submitted to ACR which is an approved registry. The order for this exam indicates that it came as a result of a lung cancer screening counseling shard decision-making visit that included all the elements required of such a visit including smoking cessation. The radiologist interpreting this exam meets the [facility] criteria for the LDCT lung cancer screening program. The exam is reported using the Lung-RADS classification scale and reported to the ACR registry. NOTE: This study was performed for the specific purposes of lung cancer screening and is not an alternative to diagnostic chest CT. RADIATION DOSE: CTDI vol(CT dose Index-volume) = 2.95mG DLP (Dose Length Product) = 111.43 mGcm FINDINGS: There are centrilobular emphysematous changes. A calcified 5 mm nodules present within the lingula. No suspicious pulmonary nodules are evident. There are minimal atelectatic or fibrotic changes in the right lung base. There are coronary artery calcifications. Artifact from pacemaker device. The left adrenal gland is enlarged at 2.5 x 1.9 cm. Incidental note is made of a rounded 12 mm calcific lesion within the central left aspect of the spinal canal at the T11-T12 area which was identified previously on 04/19/[address] and may represent a densely calcified meningioma. Please see that report for further description IMPRESSION: 1. Lung RADS Category: 2, benign 2. Other findings: Centrilobular emphysema Coronary artery disease Calcified intradural mass at the T11-T12 region possibly related to calcified meningioma. RECOMMENDATIONS: 12 month screening LDCT follow-up Appropriate clinical follow-up for the coronary artery disease and spinal lesion.
== END ==
LOC: RAD 15:26
DX: Z87.891 Personal history of nicotine dependence (principal); Z12.2 Encounter for screening for malignant neoplasm of respiratory organs
CPT/HCPCS: G0297